=== PATIENT | male | born 1980 | race African-American/Black ===

== ENCOUNTER 2024-10-16 02:52 | Inpatient (IN) | payer OTHER ==
[~2024-10-16] VITALS: Ht 193 cm; Wt 283.0 kg
[2024-10-16 03:15] LABS: HEMATOCRIT. 49.4 % (42.0-52.0); HEMOGLOBIN. 15.1 g/dL (14.0-18.0); MEAN CORPUSCULAR HEMOGLOBIN 24.6 pg (28.0-32.0); MEAN CORPUSCULAR HGB CONC 30.6 g/dL (31.0-37.0); MEAN CORPUSCULAR VOLUME 80.5 fL (80.0-94.0); MEAN PLATELET VOLUME 9.1 fl (7.4-10.4); PLATELET 163 x1000/uL (130-400); RED BLOOD CELL COUNT 6.14 mill/uL (4.7-6.1); RED CELL DISTRIBUTION WIDTH 17.2 % (11.6-14.6); WHITE BLOOD COUNT 17.3 x1000/uL (4.5-11.0)
[2024-10-16 03:28] LABS: DIFFERENTIAL COMMENT 1
[2024-10-16 03:32] LABS: CHLORIDE 100 mEq/L (98-107); POTASSIUM 4.1 mEq/L (3.5-5.1); SODIUM 132 mEq/L (136-145)
[2024-10-16 03:33] LABS: CALCIUM 9.1 mg/dL (8.7-10.4); CARBON DIOXIDE 23 mEq/L (21-32)
[2024-10-16 03:36] LABS: INR 1.1; PROTHROMBIN TIME 11.8 sec (9.6-11.0)
[2024-10-16 03:38] LABS: CREATININE 1.1 mg/dL (0.6-1.3); GLUCOSE 148 mg/dL (70-105); UREA NITROGEN BLOOD 18 mg/dL (9-23)
[2024-10-16] MEDS: SODIUM CHLORIDE 0.9% 500 ML IV ONE (04:14)
[2024-10-16] MEDS: SODIUM CHLORIDE 0.9% 1,000 ML IV ONE ×2 (04:14)
[2024-10-16] MEDS: PIPERACILLIN/TAZO 3.375G/50ML 50 ML IV SCH (04:28)
[2024-10-16 04:40] LABS: ETHANOL BLOOD < 10 mg/dL (<10); TROPONIN I HIGH SENSITIVITY 15 ng/L (3.0-53)
[2024-10-16 04:41] LABS: ALANINE AMINOTRANSFERASE 26 IU/L (10-49); ASPARTATE AMINOTRANSFERASE 20 IU/L (<34); BILIRUBIN DIRECT 0.4 mg/dL (<=3.0); BILIRUBIN TOTAL 1.1 mg/dL (0.1-1.0); PROTEIN TOTAL 7.1 g/dL (6.0-8.3)
[2024-10-16] MEDS: VANCOMYCIN 1.5GM/250ML 250 ML IV SCH (04:54)
[2024-10-16 05:05] LABS: PLATELET ESTIMATE NORMAL
[2024-10-16 05:35] LABS: TROPONIN I HIGH SENSITIVITY 14 ng/L (3.0-53)
[2024-10-16] MEDS ORDERED: ACETAMINOPHEN 325MG TABLET PO PRN ×2 (08:45)
[2024-10-16] MEDS ORDERED: MAGNESIUM/ALUMINUM HYDROXIDE/SIMETHICONE 30ML UDC PO PRN (08:45)
[2024-10-16] MEDS ORDERED: GUAIFENESIN 200MG/10ML SUGAR FREE UDC PO PRN (08:45)
[2024-10-16] MEDS ORDERED: IPRATROPIUM/ALBUTEROL 0.5-3(2.5)MG/3ML NEB HHN PRN (08:45)
[2024-10-16] MEDS ORDERED: ONDANSETRON HCL 4MG/2ML INJ IV PRN (08:45)
[2024-10-16] MEDS ORDERED: DIPHENHYDRAMINE 50MG/ML VIAL IV PRN (08:45)
[2024-10-16 09:17] VITALS: BP 129/74; PULSE 93; RESP 20; TEMP 36.6
[2024-10-16] MEDS ORDERED: INDO50CA98 MT (09:50)
[2024-10-16] MEDS ORDERED: ALLO100T MT (09:50)
[2024-10-16] MEDS: ENOXAPARIN 40MG/0.4ML SYR SUBCUT SCH (10:32)
[2024-10-16] MEDS: METRONIDAZOLE 500MG TABLET PO SCH (10:32)
[2024-10-16] MEDS: CEFTRIAXONE 1GM/50ML 50 ML IV SCH (10:42)
[2024-10-16 12:00] VITALS: BP 127/75; PULSE 82; RESP 22; TEMP 36.4; O2SAT 96
[2024-10-16] MEDS: HYDRALAZINE HCL 50MG TABLET PO SCH (14:06)
[2024-10-16] MEDS: SODIUM CHLORIDE 0.9% 3ML FLUSH IVF SCH (14:07)
[2024-10-16 16:00] VITALS: BP 133/75; PULSE 104; RESP 22; TEMP 37.1; O2SAT 100
[2024-10-16 20:00] VITALS: BP 153/82; PULSE 94; RESP 20; TEMP 36.7; O2SAT 96
[2024-10-16] MEDS ORDERED: ZOLPIDEM TARTRATE 5MG TABLET PO PRN (21:00)
[2024-10-16] MEDS ORDERED: HYDROCODONE/ACETAMINOPHEN 5/325MG TABLET PO PRN (21:05)
[2024-10-16] MEDS ORDERED: CEFAZOLIN SODIUM 1000MG/VIAL IV SCH (22:00)
[2024-10-16] MEDS: CEFAZOLIN 1000MG PREMIX 50 ML IV SCH (22:57)
[2024-10-17] VITALS: BP 148/80; PULSE 96; RESP 18; TEMP 36.7; O2SAT 98
[2024-10-17 04:00] VITALS: BP 157/97; PULSE 110; RESP 20; TEMP 36.7; O2SAT 92
[2024-10-17 08:00] VITALS: BP 162/96; PULSE 105; RESP 20; TEMP 36.9; O2SAT 95
[2024-10-17] MEDS: POTASSIUM CHLORIDE 20MEQ TABLET SR PO SCH (08:51)
[2024-10-17] MEDS: METOLAZONE 10MG TABLET PO SCH (08:51)
[2024-10-17] MEDS: CLONIDINE 0.1MG TABLET PO PRN (10:33)
[2024-10-17 12:00] VITALS: BP 182/89; PULSE 106; RESP 30; TEMP 36.7; O2SAT 96
[2024-10-17] MEDS: HYDRALAZINE HCL 25MG TABLET PO SCH (13:01)
[2024-10-17 16:00] VITALS: BP 144/90; PULSE 102; RESP 24; TEMP 36.8; O2SAT 98
[2024-10-17 20:00] VITALS: BP 159/79; PULSE 81; RESP 20; RESP 52; TEMP 36.2; O2SAT 97
[2024-10-18] VITALS: BP 114/87; PULSE 61; RESP 20; TEMP 36.2; O2SAT 98
== END 2024-10-18 02:48 | disposition short-term general hospital (02) | DRG 603 ==
LOC: ER 02:52 → 8WST 05:22 → EDBEDREQ 07:53 → ENRESERV 08:10 → 8EST 18:24
PROVIDERS: ADMIT Internal Medicine; ATTEND Internal Medicine
DX: L03.115 Cellulitis of right lower limb (principal); Z68.45 Body mass index [BMI] 70 or greater, adult; R65.10 Systemic inflammatory response syndrome (SIRS) of non-infectious origin without acute organ dysfunction; L03.116 Cellulitis of left lower limb; E66.01 Morbid (severe) obesity due to excess calories; I10 Essential (primary) hypertension; M10.9 Gout, unspecified; Z74.01 Bed confinement status; R26.2 Difficulty in walking, not elsewhere classified
CPT/HCPCS: 36415; 71045; 80048; 80076; 80320; 83605; 84145; 84484; 85025; 93005; 93970; 96361; 96365; 96367; 97110; 97163; 97530; 99291; J0690; J0696; J1650; J2543; J3370; G0480